=== PATIENT | male | born 1995 | race Caucasian/White ===

== ENCOUNTER 2017-05-31 17:55 | Emergency (ER) | payer OTHER ==
[~2017-05-31] VITALS: Ht 185.4 cm; Wt 80.2 kg
[2017-05-31 17:57] VITALS: BP 161/92
== END 2017-05-31 18:38 ==
LOC: ED 18:32
DX: R42 Dizziness and giddiness (principal); L20.9 Atopic dermatitis, unspecified
CPT/HCPCS: 99281

== ENCOUNTER 2018-02-22 21:56 | Emergency (ER) | payer OTHER ==
[~2018-02-22] VITALS: Ht 185.4 cm; Wt 81.4 kg
[2018-02-22] MEDS ORDERED: KETOROLAC 30 MG/1 ML ONE (22:25)
[2018-02-22] MEDS ORDERED: ONDANSETRON ODT 4 MG ONE (22:25)
[2018-02-22] MEDS ORDERED: ONDANSETRON ODT 4 MG PO ONE (22:30)
[2018-02-22] MEDS ORDERED: KETOROLAC 30 MG/1 ML IM ONE (22:30)
[2018-02-22 22:49] LABS: BASOPHILS # (AUTO) 0.12 x10^3/uL (0-0.1); BASOPHILS % (AUTO) 1 % (0-1); EOSINOPHILS % (AUTO) 3 % (1-7); LYMPHOCYTES # (AUTO) 2.48 x10^3/uL (1-3.4); LYMPHOCYTES % (AUTO) 15 % (22-44); MD NO; MEAN CORPUSCULAR HGB CONC 34.4 g/dL (33.2-36.2); MEAN CORPUSCULAR VOLUME 90.2 fL (81-97); MEAN PLATELET VOLUME 7.4 fL (7.4-10.4); MONOCYTES # (AUTO) 1.34 x10^3/uL (0.2-0.8); MONOCYTES % (AUTO) 8 % (2-9); NEUTROPHILS # (AUTO) 12.16 x10^3/uL (1.8-6.8); NEUTROPHILS % (AUTO) 73 % (42-75); PLATELET COUNT 221 x10^3/uL (130-400); RED BLOOD COUNT 4.97 x10^6/uL (4.38-5.82); RED CELL DISTRIBUTION WIDTH 13.2 % (9.4-14.8)
[2018-02-22 22:56] LABS: MICROSCOPIC INDICATED
[2018-02-22 23:00] LABS: ALANINE AMINOTRANSFERASE 30 U/L (12-78); ALBUMIN 3.7 g/dL (3.4-5.0); ANION GAP 8 mmol/L (5-15); CALCIUM 8.5 mg/dL (8.5-10.1); CHLORIDE 106 mmol/L (98-107); CREATININE 1.24 mg/dL (0.7-1.3)
[2018-02-22 23:01] LABS: CULTURE INDICATED? NO
[2018-02-22 23:02] LABS: ALKALINE PHOSPHATASE 99 U/L (45-117); BILIRUBIN,TOTAL 1.5 mg/dL (0.2-1.0); TOTAL PROTEIN 7.3 g/dL (6.4-8.2)
[2018-02-22] MEDS ORDERED: DEXAMETHASONE 4 MG TABLET ONE (23:53)
[2018-02-22 23:58] VITALS: BP 144/82
[2018-02-23] MEDS ORDERED: DEXAMETHASONE 4 MG TABLET PO ONE
== END 2018-02-23 00:04 | disposition home or self-care (01) ==
LOC: ED 23:59
DX: R30.0 Dysuria (principal); R10.9 Unspecified abdominal pain; I88.0 Nonspecific mesenteric lymphadenitis
CPT/HCPCS: 36415; 74176; 80053; 81001; 83690; 85025; 87491; 87591; 96372; 99285; J1885; Q0162

== ENCOUNTER 2019-01-11 14:41 | Emergency (ER) | payer OTHER ==
[~2019-01-11] VITALS: Ht 185.4 cm; Wt 87.0 kg
--- NOTE | 2019-01-11 16:57 | NUR ---
FROM LOBBY TO ROOM AT THIS TIME
--- NOTE | 2019-01-11 18:20 | NUR ---
PT. IS A & O X 4 WITH C/O RIGHT SHOULDER PAIN. PT. STATES ONSET AFTER VOMITING. CMS CHECKS ARE INTACT. PULSES ARE +2 THROUGHOUT. PT. DENIES TRAUMA. PT. WAS GIVEN DISCHARGE INSTRUCTIONS AND A SCRIPT WITH UNDERSTANDING VERBALIZED ALONG WITH WILLINGNESS TO COMPLY. PT. WAS AMBULATORY TO DISCHARGE WITH A STEADY GAIT.
[2019-01-11 18:23] VITALS: BP 157/93
== END 2019-01-11 18:26 | disposition home or self-care (01) ==
LOC: ED 18:05
DX: M79.621 Pain in right upper arm (principal)
CPT/HCPCS: 99283

== ENCOUNTER 2019-01-12 20:14 | Emergency (ER) | payer OTHER ==
[~2019-01-12] VITALS: Ht 185.4 cm; Wt 86.8 kg
--- NOTE | 2019-01-12 20:49 | NUR ---
PT STATES THAT HE HAS BEEN HAVING SHARP PAIN IN BILATERAL ARMS, DIZINESS X 3 DAYS. PT WAS RECENTLY SEEN HERE AND TREATED WITH MEDICATIONS FOR AN INFLAMMATORY RESPONSE. MONITORS APPLIED, SIDERAILS UP X2, CALL LIGHT WITHIN REACH
--- NOTE | 2019-01-12 21:38 | NUR ---
HR ANALYST AT PT'S BEDSIDE
[2019-01-12 21:56] LABS: BASOPHILS # (AUTO) 0.06 x10^3/uL (0-0.1); BASOPHILS % (AUTO) 1 % (0-1); EOSINOPHILS # (AUTO) 0.48 x10^3/uL (0-0.4); EOSINOPHILS % (AUTO) 4 % (1-7); LYMPHOCYTES # (AUTO) 3.13 x10^3/uL (1-3.4); LYMPHOCYTES % (AUTO) 28 % (22-44); MD NO; MEAN CORPUSCULAR HEMOGLOBIN 31.1 pg (27.5-34.5); MEAN CORPUSCULAR HGB CONC 34.7 g/dL (33.2-36.2); MEAN CORPUSCULAR VOLUME 89.7 fL (81-97); MEAN PLATELET VOLUME 7.5 fL (7.4-10.4); MONOCYTES # (AUTO) 0.74 x10^3/uL (0.2-0.8); MONOCYTES % (AUTO) 7 % (2-9); NEUTROPHILS # (AUTO) 6.71 x10^3/uL (1.8-6.8); NEUTROPHILS % (AUTO) 60 % (42-75); PLATELET COUNT 251 x10^3/uL (130-400); RED CELL DISTRIBUTION WIDTH 13.2 % (9.4-14.8)
[2019-01-12 22:06] LABS: ALANINE AMINOTRANSFERASE 38 U/L (12-78); ALBUMIN 4.2 g/dL (3.4-5.0); ANION GAP 7 mmol/L (5-15); CALCIUM 8.6 mg/dL (8.5-10.1); CHLORIDE 108 mmol/L (98-107); CREATININE 0.98 mg/dL (0.7-1.3)
[2019-01-12 22:16] LABS: ALKALINE PHOSPHATASE 87 U/L (45-117); BILIRUBIN,TOTAL 1.7 mg/dL (0.2-1.0); TOTAL PROTEIN 7.3 g/dL (6.4-8.2)
--- NOTE | 2019-01-12 23:03 | NUR ---
TASK RN: Pt ambulated to bathroom, no assistance required.
[2019-01-12 23:31] VITALS: BP 125/79
--- NOTE | 2019-01-12 23:32 | NUR ---
TASK RN: Patient/Caregiver given discharge instructions and they have confirmed that they understand the instructions. Patient ambulatory with steady gait.
== END 2019-01-12 23:33 | disposition home or self-care (01) ==
LOC: ED 21:41
DX: R42 Dizziness and giddiness (principal); Z00.01 Encounter for general adult medical examination with abnormal findings; M79.601 Pain in right arm; M79.602 Pain in left arm
CPT/HCPCS: 36415; 71045; 80053; 84443; 85025; 93005; 99284

== ENCOUNTER 2019-06-25 15:11 | Emergency (ER) | payer OTHER ==
[~2019-06-25] VITALS: Ht 188 cm; Wt 91.8 kg
[2019-06-25 15:13] VITALS: BP 160/91
--- NOTE | 2019-06-25 15:23 | NUR ---
THIS IS A 24 YO MALE COMING IN FOR DRY COUGH THAT GETS WORSE THROUGH THE DAY, STARTED 1 WEEK AGO. CHEST AND UPPER BACK ARE SORE WHEN COUGHING. NO RUNNY NOSE OR SORE THROAT, NO EAR PAIN. PT HAS BEEN ON BACTRIM FOR 1 WEEK FOR EPIDIDYMITIS.
[2019-06-25] MEDS ORDERED: ALBUTEROL/IPRATROPIUM 2.5MG/0.5MG, 3 ML NEB ONE (15:30)
[2019-06-25] MEDS ORDERED: ALBUTEROL/IPRATROPIUM 2.5MG/0.5MG, 3 ML ONE (15:47)
== END 2019-06-25 16:23 | disposition home or self-care (01) ==
LOC: ED 16:21
DX: R05 Cough (principal)
CPT/HCPCS: 71046; 93005; 94640; 99283; J7620

== ENCOUNTER 2019-09-29 19:03 | Emergency (ER) | payer OTHER ==
[~2019-09-29] VITALS: Ht 185.4 cm; Wt 94.7 kg
[2019-09-29] MEDS ORDERED: MAALOX/HYOSCYAMINE/LIDOCAINE 45 ML BTL PO ONE (20:00)
[2019-09-29 20:18] LABS: BASOPHILS # (AUTO) 0.09 x10^3/uL (0-0.1); BASOPHILS % (AUTO) 1 % (0-1); EOSINOPHILS # (AUTO) 0.16 x10^3/uL (0-0.4); EOSINOPHILS % (AUTO) 2 % (1-7); LYMPHOCYTES # (AUTO) 2.75 x10^3/uL (1-3.4); LYMPHOCYTES % (AUTO) 28 % (22-44); MD NO; MEAN CORPUSCULAR HEMOGLOBIN 30.5 pg (27.5-34.5); MEAN CORPUSCULAR HGB CONC 33.9 g/dL (33.2-36.2); MEAN CORPUSCULAR VOLUME 89.9 fL (81-97); MEAN PLATELET VOLUME 7.6 fL (7.4-10.4); MONOCYTES # (AUTO) 0.75 x10^3/uL (0.2-0.8); MONOCYTES % (AUTO) 8 % (2-9); NEUTROPHILS # (AUTO) 6.11 x10^3/uL (1.8-6.8); NEUTROPHILS % (AUTO) 62 % (42-75); PLATELET COUNT 251 x10^3/uL (130-400); RED BLOOD COUNT 5.32 x10^6/uL (4.38-5.82); RED CELL DISTRIBUTION WIDTH 13.4 % (9.4-14.8)
[2019-09-29 20:25] LABS: ALANINE AMINOTRANSFERASE 54 U/L (12-78); ALBUMIN 4.1 g/dL (3.4-5.0); ANION GAP 5 mmol/L (5-15); CALCIUM 9.2 mg/dL (8.5-10.1); CHLORIDE 107 mmol/L (98-107)
[2019-09-29 20:28] LABS: ALKALINE PHOSPHATASE 99 U/L (45-117); BILIRUBIN,TOTAL 0.8 mg/dL (0.2-1.0); CREATININE 1.01 mg/dL (0.7-1.3)
[2019-09-29] MEDS ORDERED: MAALOX/HYOSCYAMINE/LIDOCAINE 45 ML BTL ONE (20:55)
--- NOTE | 2019-09-29 21:04 | NUR ---
PT STATES HE HAS GPIGASTRIC PAIN RELEIVED BY GI COCKTAIL. PT WITH BLACK TARRY STOOLS X 2 DAYS AND TOOK PEPTOBISMOL 3 DAYS AGO. Addendum: 09/29/19 at 2114 by BDICECCO EPIGASTRIC PAIN*
--- NOTE | 2019-09-29 21:10 | NUR ---
ER PROVIDER REMINDED OF NEED FOR D/C PAPERWORK (D/C ORDERS ALREADY RECEIVED)
[2019-09-29 21:45] VITALS: BP 132/71
== END 2019-09-29 21:47 | disposition home or self-care (01) ==
LOC: ED 20:33
DX: K29.00 Acute gastritis without bleeding (principal); R11.2 Nausea with vomiting, unspecified
CPT/HCPCS: 36415; 80053; 83605; 83690; 85025; 99283

== ENCOUNTER 2019-10-08 16:33 | Emergency (ER) | payer OTHER ==
[~2019-10-08] VITALS: Ht 188 cm; Wt 91.3 kg
--- NOTE | 2019-10-08 17:04 | NUR ---
TO ED FROM HOME. HAD DARK STOOLS AND DIGITAL/RECTAL EXAM LAST WEEK NO GI BLEED BUT AFTER FELT PAIN IN RECTUM AND DFF TOILETING. LAST BM 2 DAYS AGO. L FLANK PAIN. NO URINARY SX. NO PAIN ON PALP. TO BATHROOM GAIT STEADY. AWAITING MD CALL SHIN IN REACH.
[2019-10-08 17:48] VITALS: BP 140/79
--- NOTE | 2019-10-08 17:48 | NUR ---
XR SHOW LG AMT STOOL RECHECK.
--- NOTE | 2019-10-08 19:05 | NUR ---
wendy in room to speak w/ pt. to be dc. as
[2019-10-08] MEDS ORDERED: MAGNESIUM CITRATE 300ML ORAL SOL ONE (19:20)
[2019-10-08] MEDS ORDERED: MAGNESIUM CITRATE 300ML ORAL SOL PO ONE (19:30)
--- NOTE | 2019-10-08 19:36 | NUR ---
pt to be dc w/ mag citrate. awaiting dc papers. pt made aware of delay d/t computers. wendy working on dc papers. as
== END 2019-10-08 19:55 | disposition home or self-care (01) ==
LOC: ED 19:01
DX: K59.00 Constipation, unspecified (principal); M54.9 Dorsalgia, unspecified; R07.81 Pleurodynia
CPT/HCPCS: 74021; 99283